=== PATIENT | male | born 1960 | race Caucasian/White ===

== ENCOUNTER 2020-12-03 21:46 | Inpatient (IN) | payer MEDICAID ==
[~2020-12-03] VITALS: Ht 167.6 cm; Wt 65.5 kg
[~2020-12-03 21:46] MED LIST: ACET325T PO; ACID1PAC PO; CLOZ25TA5 PO; DEXT1DRO OU; ESCI20TA87 PO; LEVO25TA4 PO; LORA1TAB3 PO; TRAZ150T80 PO
[2020-12-03 22:49] LABS: BASOPHILS % (AUTO) 0.2 % (0.0-2.0); EOSINOPHILS % (AUTO) 0 % (1.0-6.0); HEMOGLOBIN 12.7 g/dL (13.5-17.5); LYMPHOCYTES # (AUTO) 0.6 K/uL (1.0-4.8); MEAN CORPUSCULAR HEMOGLOBIN 29.3 pg (26.0-34.0); MEAN CORPUSCULAR HGB CONC 33.4 G/dL (31.0-37.0); MEAN CORPUSCULAR VOLUME 88 fL (80-100); MONOCYTES # (AUTO) 1.2 K/uL (0.1-1.0); MONOCYTES % (AUTO) 5.7 % (2.0-9.0); NEUTROPHILS # (AUTO) 18.6 K/uL (1.8-7.7); PLATELET COUNT (AUTO) 312 K/uL (150-450); RED BLOOD CELL COUNT(AUTO) 4.33 MIL/uL (4.50-5.90)
[2020-12-03 22:53] LABS: NEUTROPHILS % (AUTO) 91.1 % (40.0-70.0)
[2020-12-03 22:58] LABS: ANION GAP 9 mmol/L (8-16); CALCIUM, TOTAL 8.3 mg/dL (8.8-10.5); CARBON DIOXIDE 26 mmol/L (22-29); CHLORIDE 98 mmol/L (98-107); CREATININE 0.91 mg/dL (0.60-1.30); GLOMERULAR FILTR. RATE CALC > 60 mL/min (>60); GLUCOSE,RANDOM 117 mg/dL (70-110); POTASSIUM 3.9 mmol/L (3.5-5.1); SODIUM SERUM 133 mmol/L (136-145); UREA NITROGEN, BLOOD 13 mg/dL (7-18)
[2020-12-03 23:04] LABS: ALANINE AMINOTRANSFERASE 26 U/L (12-78); ALBUMIN 3.3 g/dL (3.4-5.0); ALKALINE PHOSPHATASE 117 U/L (46-116); ASPARTATE AMINOTRANSFERASE 21 U/L (15-37); TOTAL PROTEIN, SERUM 6.7 g/dL (6.4-8.2)
[2020-12-03 23:08] LABS: LACTIC ACID 2.8 mmol/L (0.4-2.0)
[2020-12-03 23:09] LABS: B-TYPE NATRIURETIC PEPTIDE 23 pg/mL (0-100)
[2020-12-03] MEDS ORDERED: CefTRIAXone 1 GM/DEXTROSE 50 ML IV ONE (23:15)
[2020-12-03] MEDS ORDERED: DOXYCYCLINE HYCLATE 100 MG in DEXTROSE 5%-WATER 100 ML IV ONE (23:15)
[2020-12-03] MEDS ORDERED: SODIUM CHLORIDE 0.9% 2,900 ML IV ONE (23:15)
[2020-12-03] MEDS ORDERED: MetroNIDAZOLE 500 MG/NACL 100 ML IV ONE (23:15)
[2020-12-03 23:16] LABS: BILIRUBIN,TOTAL 0.3 mg/dL (0.1-1.0)
[2020-12-03] MEDS ORDERED: OXCA300T57 PO (23:18)
[2020-12-03 23:39] LABS: COVID AG,FIA SOURCE NASAL SWAB
[2020-12-03] MEDS ORDERED: TRAZ-252 PO (23:41)
[2020-12-03] MEDS ORDERED: BISA-151 PO (23:41)
[2020-12-03] MEDS ORDERED: BISA10SU11 PR (23:41)
[2020-12-03] MEDS ORDERED: GABA-1216 PO (23:41)
[2020-12-03] MEDS ORDERED: VALB40CA2 PO (23:41)
[2020-12-03] MEDS ORDERED: ESCI20TA87 PO (23:41)
[2020-12-03] MEDS ORDERED: CLOZ100T32 PO (23:41)
[2020-12-03] MEDS ORDERED: CLOZ25TA5 PO (23:41)
[2020-12-03] MEDS ORDERED: NACL1 PO (23:41)
[2020-12-03] MEDS ORDERED: BACL10TA PO (23:41)
[2020-12-04] MEDS ORDERED: PIPERACILLIN/TAZO 3.375 GM/D5W 50 ML IV ONE ×2 (00:30→12:00)
[2020-12-04] MEDS ORDERED: 0.9% SODIUM CHLORIDE 10 ML SYRINGE IVP PRN (03:30)
[2020-12-04] MEDS ORDERED: ACETAMINOPHEN 325 MG TABLET PO PRN ×2 (03:30→11:15)
[2020-12-04] MEDS ORDERED: ONDANSETRON HCL 4 MG/2 ML VIAL IVP PRN ×2 (03:30→11:15)
[2020-12-04] MEDS ORDERED: MORPHINE SULFATE 2 MG/ML SYRINGE IVP PRN (11:15)
[2020-12-04] MEDS ORDERED: BISACODYL 10 MG RECTAL RECTAL SUPPOSITORY PR PRN (11:15)
[2020-12-04] MEDS ORDERED: SODIUM CHLORIDE 0.9% 1,000 ML IV ONE (11:15)
[2020-12-04] MEDS ORDERED: ZOLPIDEM TARTRATE 5 MG TABLET PO PRN (11:15)
[2020-12-04] MEDS ORDERED: HYDROCODONE/ACETAMINOPHEN 5-325 MG TABLET PO PRN (11:15)
[2020-12-04] MEDS ORDERED: MAGNESIUM HYDROXIDE SUSPENSION 30 ML UDCUP PO PRN (11:15)
[2020-12-04] MEDS ORDERED: VANCOMYCIN HCL 1.25 GM in DEXTROSE 5%-WATER 250 ML IV ONE ×2 (12:00→20:00)
[2020-12-04] MEDS ORDERED: MINERAL OIL 133 ML ENEMA PR ONE (15:45)
[2020-12-04] MEDS: HEPARIN SODIUM,PORCINE 5,000 UNITS/ML VIAL SQ SCH (16:35)
[2020-12-04] MEDS ORDERED: LORazepam 2 MG/ML VIAL IVP PRN (20:15)
[2020-12-04] MEDS ORDERED: LORazepam 2 MG/ML VIAL IVP ONE (20:15)
[2020-12-04] MEDS ORDERED: HALOPERIDOL LACTATE 5 MG/ML VIAL IVP ONE (20:15)
[2020-12-04] MEDS: DOCUSATE SODIUM 100 MG CAPSULE PO SCH (21:00)
[2020-12-04] MEDS: PIPERACILLIN/TAZO 3.375 GM/D5W 50 ML IV SCH (21:22)
[2020-12-04 23:53] VITALS: BP 131/96
[2020-12-05] MEDS: PIPERACILLIN/TAZO 3.375 GM/D5W 50 ML IV SCH ×4 (00:09→16:49)
[2020-12-05] MEDS: HEPARIN SODIUM,PORCINE 5,000 UNITS/ML VIAL SQ SCH ×3 (00:25→16:49)
[2020-12-05 05:00] VITALS: BP 134/97
[2020-12-05 07:37] VITALS: BP 136/58
[2020-12-05 07:39] LABS: BASOPHILS % (AUTO) 0.3 % (0.0-2.0); EOSINOPHILS % (AUTO) 0.1 % (1.0-6.0); HEMOGLOBIN 12.3 g/dL (13.5-17.5); LYMPHOCYTES # (AUTO) 1.1 K/uL (1.0-4.8); LYMPHOCYTES % (AUTO) 9.1 % (22.0-44.0); MEAN CORPUSCULAR HEMOGLOBIN 30.3 pg (26.0-34.0); MEAN CORPUSCULAR HGB CONC 34.3 G/dL (31.0-37.0); MEAN CORPUSCULAR VOLUME 88 fL (80-100); MONOCYTES # (AUTO) 0.7 K/uL (0.1-1.0); MONOCYTES % (AUTO) 5.7 % (2.0-9.0); NEUTROPHILS % (AUTO) 84.8 % (40.0-70.0); PLATELET COUNT (AUTO) 324 K/uL (150-450); RED BLOOD CELL COUNT(AUTO) 4.07 MIL/uL (4.50-5.90); RED CELL DISTRIBUTION WIDTH 14.6 % (11.5-14.5)
[2020-12-05 07:55] LABS: ALANINE AMINOTRANSFERASE 32 U/L (12-78); ALBUMIN 3.4 g/dL (3.4-5.0); ALKALINE PHOSPHATASE 110 U/L (46-116); ANION GAP 9 mmol/L (8-16); ASPARTATE AMINOTRANSFERASE 60 U/L (15-37); BILIRUBIN,TOTAL 0.8 mg/dL (0.1-1.0); CALCIUM, TOTAL 8.4 mg/dL (8.8-10.5); CARBON DIOXIDE 26 mmol/L (22-29); CHLORIDE 102 mmol/L (98-107); CREATININE 0.79 mg/dL (0.60-1.30); GLOMERULAR FILTR. RATE CALC > 60 mL/min (>60); GLUCOSE,RANDOM 94 mg/dL (70-110); POTASSIUM 3.6 mmol/L (3.5-5.1); SODIUM SERUM 137 mmol/L (136-145); TOTAL PROTEIN, SERUM 6.8 g/dL (6.4-8.2); UREA NITROGEN, BLOOD 8 mg/dL (7-18)
[2020-12-05] MEDS: PANTOPRAZOLE SODIUM 40 MG DR TABLET PO SCH (08:17)
[2020-12-05] MEDS: DOCUSATE SODIUM 100 MG CAPSULE PO SCH ×2 (08:17→20:47)
[2020-12-05] MEDS: VANCOMYCIN HCL 1.25 GM in DEXTROSE 5%-WATER 250 ML IV SCH ×3 (10:19→21:57)
[2020-12-05 11:37] VITALS: BP 138/76
[2020-12-05 15:21] VITALS: BP 152/78
[2020-12-05 19:33] VITALS: BP 145/77
[2020-12-06 00:22] VITALS: BP 143/79
[2020-12-06] MEDS: HEPARIN SODIUM,PORCINE 5,000 UNITS/ML VIAL SQ SCH ×3 (00:50→16:15)
[2020-12-06] MEDS: PIPERACILLIN/TAZO 3.375 GM/D5W 50 ML IV SCH ×4 (00:50→17:01)
[2020-12-06 04:50] VITALS: BP 126/66
[2020-12-06 06:51] LABS: ANION GAP 11 mmol/L (8-16); CALCIUM, TOTAL 8.5 mg/dL (8.8-10.5); CARBON DIOXIDE 25 mmol/L (22-29); CHLORIDE 103 mmol/L (98-107); CREATININE 0.78 mg/dL (0.60-1.30); GLOMERULAR FILTR. RATE CALC > 60 mL/min (>60); GLUCOSE,RANDOM 107 mg/dL (70-110); POTASSIUM 3.5 mmol/L (3.5-5.1); SODIUM SERUM 139 mmol/L (136-145); UREA NITROGEN, BLOOD 12 mg/dL (7-18); VANCOMYCIN,RANDOM 18.6 mcg/mL (25.0-50.0)
[2020-12-06 07:50] VITALS: BP 145/93
[2020-12-06] MEDS: PANTOPRAZOLE SODIUM 40 MG DR TABLET PO SCH (09:00)
[2020-12-06] MEDS: DOCUSATE SODIUM 100 MG CAPSULE PO SCH (09:00)
[2020-12-06 11:36] VITALS: BP 143/95
[2020-12-06] MEDS: VANCOMYCIN HCL 1.25 GM in DEXTROSE 5%-WATER 250 ML IV SCH (11:59)
[2020-12-06 15:46] VITALS: BP 157/95
[2020-12-06] MEDS ORDERED: VANCOMYCIN HCL 1.5 GM in DEXTROSE 5%-WATER 250 ML IV SCH (20:00)
== END 2020-12-06 19:20 | DRG 720 ==
LOC: EMS 21:49 → 5N 12-04 11:06 → 5S 12-06 08:23
PROVIDERS: ADMIT Internal Medicine; ATTEND Internal Medicine
DX: A41.9 Sepsis, unspecified organism (principal); J18.9 Pneumonia, unspecified organism; G80.9 Cerebral palsy, unspecified; E03.9 Hypothyroidism, unspecified; E66.9 Obesity, unspecified; E78.5 Hyperlipidemia, unspecified; Z20.822 Contact with and (suspected) exposure to COVID-19; K59.00 Constipation, unspecified; F15.90 Other stimulant use, unspecified, uncomplicated; F12.90 Cannabis use, unspecified, uncomplicated; Y95 Nosocomial condition; Z68.23 Body mass index [BMI] 23.0-23.9, adult; Z88.8 Allergy status to other drugs, medicaments and biological substances; Z86.59 Personal history of other mental and behavioral disorders; Z87.39 Personal history of other diseases of the musculoskeletal system and connective tissue; Z86.69 Personal history of other diseases of the nervous system and sense organs; Z74.01 Bed confinement status
CPT/HCPCS: 71045; 74176; 80048; 80053; 80202; 83605; 83880; 84484; 85025; 87040; 87081; 93005; 99291; J0696; J1630; J1644; J2060; J2270; J2543; J3370; J3490; J7030; J7060; 36415-L1; 36415-TC; U0003